=== PATIENT | female | born 1960 | race African-American/Black ===

== ENCOUNTER → 2017-12-18 | Emergency (ER) | payer BC ==
[~2017-12-18] VITALS: Ht 162.6 cm; Wt 52.7 kg
[~2017-12-18] MED LIST: BROMFED DM COU118 ML PO; CIPRO500 MG PO; GLIMEPIRIDE2 MG PO; METFORMIN HCL500 MG PO; NASONEX17 GM
[2017-12-18 11:51] VITALS: BP 101/63
== END | disposition home or self-care (01) ==
LOC: FSED 10:05
DX: R05 Cough (principal); J00 Acute nasopharyngitis [common cold]
CPT/HCPCS: 87400; 99283